=== PATIENT | female | born 1975 | race African-American/Black ===

== ENCOUNTER 2021-03-10 12:58 | Outpatient (CLI) | payer BC | END 2021-03-10 12:59 | disposition home or self-care (01) | LOC: CSHMAMMO 12:58 | PROVIDERS: ATTEND Obstetrics & Gynecology | DX: R92.8 Other abnormal and inconclusive findings on diagnostic imaging of breast (principal); N63.15 Unspecified lump in the right breast, overlapping quadrants | CPT/HCPCS: G0279 ==

== ENCOUNTER 2022-10-25 13:31 | Outpatient (CLI) | payer BC | END 2022-10-25 13:32 | disposition home or self-care (01) | LOC: CSHMAMMO 13:31 | PROVIDERS: ATTEND Obstetrics & Gynecology | DX: Z12.31 Encounter for screening mammogram for malignant neoplasm of breast (principal); N63.20 Unspecified lump in the left breast, unspecified quadrant; Z80.3 Family history of malignant neoplasm of breast | CPT/HCPCS: 77063; 77067 ==